=== PATIENT | female | born 1980 | race Caucasian/White ===

== ENCOUNTER 2017-12-12 11:29 | Emergency (ER) | payer MEDICARE, MEDICAID ==
[~2017-12-12] VITALS: Ht 172.7 cm; Wt 72.4 kg
[~2017-12-12 11:29] MED LIST: DEXL30CA3 PO; NORG1TAB42 PO
[2017-12-12 11:34] VITALS: BP 131/86
[2017-12-12] MEDS ORDERED: CEPH500C5 PO (11:47)
[2017-12-12] MEDS ORDERED: SULF1TAB49 PO (11:47)
== END 2017-12-12 12:00 | disposition home or self-care (01) ==
LOC: ER 11:30
DX: L02.511 Cutaneous abscess of right hand (principal); Z88.1 Allergy status to other antibiotic agents; Z79.899 Other long term (current) drug therapy
CPT/HCPCS: 99283

== ENCOUNTER 2019-08-31 12:58 | Emergency (ER) | payer MEDICAID, MEDICARE ==
[~2019-08-31] VITALS: Ht 172.7 cm; Wt 75.0 kg
[2019-08-31 13:20] LABS: BASOPHILS # (AUTO) 0.1 X10'3 (0-0.2); BASOPHILS % (AUTO) 0.9 % (0-1); EOSINOPHILS # (AUTO) 0.1 X10'3 (0-0.9); HEMATOCRIT 40.4 % (35.0-45.0); HEMOGLOBIN 13.7 g/dl (12.0-16.0); LYMPHOCYTES # (AUTO) 1.4 X10'3 (1.1-4.8); LYMPHOCYTES % (AUTO) 20.9 % (21-51); MEAN CORPUSCULAR HEMOGLOBIN 34.7 PG (27.0-31.0); MEAN CORPUSCULAR VOLUME 102.1 FL (78-98); MEAN PLATELET VOLUME 6.9 FL (7.4-10.4); MONOCYTES # (AUTO) 0.4 X10'3 (0-0.9); MONOCYTES % (AUTO) 6.5 % (2-12); NEUTROPHILS # (AUTO) 4.7 X10'3 (1.8-7.7); NEUTROPHILS % (AUTO) 70.7 % (42-75); PLATELET COUNT 300 X10'3 (140-440); RED BLOOD COUNT 3.95 X10'6 (4.20-5.60); RED CELL DISTRIBUTION WIDTH 12.7 % (11.5-14.5); WHITE BLOOD COUNT 6.7 X10'3 (4.5-11.0)
[2019-08-31 13:30] LABS: URINE HCG NEGATIVE (NEG)
[2019-08-31 13:31] LABS: CLARITY,URINE CLOUDY (Clear); COLOR,URINE YELLOW (Yellow); GLUCOSE, URINE NEGATIVE (Neg); KETONES,URINE TRACE mg/dl (Neg); LEUKOCYTE ESTERASE ,URINE TRACE (Neg); NITRITES, URINE NEGATIVE (Neg); OCCULT BLOOD,URINE TRACE-INTACT (Neg); PH,URINE 5.5 (4.8-8.0); PROTEIN,URINE TRACE mg/dl (Neg); UROBILINOGEN,URINE 0.2 E.U/dL (0.2-1.0)
[2019-08-31 13:33] LABS: ALANINE AMINOTRANSFERASE 21 U/L (12-78); ALBUMIN 3.7 G/DL (3.4-5.0); ALKALINE PHOSPHATASE 60 IU/L (46-116); ANION GAP 11 (8-16); ASPARTATE AMINO TRANSFERASE 19 U/L (10-37); BILIRUBIN,TOTAL 0.7 MG/DL (0.1-1.0); BLOOD UREA NITROGEN 11 MG/DL (7-18); BUN/CREATININE RATIO 13.4 (6.6-38.0); CALCIUM 8.2 MG/DL (8.5-10.1); CHLORIDE 104 MMOL/L (99-107); CREATININE 0.82 MG/DL (0.40-0.90); GLUCOSE 110 MG/DL (70-104); POTASSIUM 3.5 MMOL/L (3.5-5.1); SODIUM 143 MMOL/L (135-145); TOTAL CARBON DIOXIDE 28.1 MMOL/L (24-32); TOTAL PROTEIN 7.3 G/DL (6.4-8.2); eGFR 77 ML/MIN
[2019-08-31 13:35] LABS: UA COLLECTION TYPE CLN CATCH MIDSTREAM
[2019-08-31 13:51] LABS: BACTERIA,URINE FEW /HPF (Neg); RBC,URINE 0-2 /HPF (0-2); SQUAMOUS EPITHELIAL CELL,UR MODERATE /LPF (FEW)
[2019-08-31 13:53] LABS: HYALINE CASTS 0-3 /LPF (NEGATIVE); MUCUS STRANDS MODERATE /LPF (Neg)
[2019-08-31] MEDS ORDERED: OMEP40CA13 PO (15:04)
[2019-08-31 15:35] VITALS: BP 131/84
== END 2019-08-31 15:37 | disposition home or self-care (01) ==
LOC: ER 12:58
DX: R10.11 Right upper quadrant pain (principal); R10.13 Epigastric pain; Z88.1 Allergy status to other antibiotic agents; Z88.8 Allergy status to other drugs, medicaments and biological substances; Z79.899 Other long term (current) drug therapy
CPT/HCPCS: 36415; 76700; 80053; 81001; 81025; 85025; 85610; 87088; 99284

== ENCOUNTER 2023-03-20 19:13 | Inpatient (IN) | payer BC, MEDICAID ==
[~2023-03-20] VITALS: Ht 172.7 cm; Wt 70.0 kg
[2023-03-20] MEDS ORDERED: normal saline 1000ML IV soln IVB ONE ×2 (19:20→20:10)
[2023-03-20 19:36] LABS: BASOPHILS % (AUTO) 0.6 % (0-1); EOSINOPHILS % (AUTO) 0.3 % (0-6); HEMATOCRIT 38.6 % (35.0-45.0); HEMOGLOBIN 13.6 g/dl (12.0-16.0); LYMPHOCYTES # (AUTO) 1.7 X10'3 (1.1-4.8); LYMPHOCYTES % (AUTO) 28.1 % (21-51); MEAN CORPUSCULAR HEMOGLOBIN 36.1 PG (27.0-31.0); MEAN CORPUSCULAR HGB CONC 35.3 g/dL (33.0-36.5); MEAN CORPUSCULAR VOLUME 102.5 FL (78-98); MEAN PLATELET VOLUME 7.6 FL (7.4-10.4); MONOCYTES # (AUTO) 0.7 X10'3 (0-0.9); MONOCYTES % (AUTO) 11.3 % (2-12); NEUTROPHILS # (AUTO) 3.7 X10'3 (1.8-7.7); NEUTROPHILS % (AUTO) 59.7 % (42-75); PLATELET COUNT 304 X10'3 (140-440); RED BLOOD COUNT 3.77 X10'6 (4.20-5.60); RED CELL DISTRIBUTION WIDTH 12.6 % (11.5-14.5); WHITE BLOOD COUNT 6.2 X10'3 (4.5-11.0)
[2023-03-20 19:51] LABS: ALANINE AMINOTRANSFERASE 31 U/L (12-78); ALBUMIN 4.2 G/DL (3.4-5.0); ALBUMIN/GLOBULIN RATIO 1.1 (1.1-1.5); ALKALINE PHOSPHATASE 90 IU/L (46-116); ANION GAP 20 (8-16); ASPARTATE AMINO TRANSFERASE 33 U/L (10-37); BILIRUBIN,TOTAL 0.5 MG/DL (0.1-1.0); BLOOD UREA NITROGEN 50 MG/DL (7-18); BUN/CREATININE RATIO 21.5 (10.0-20.0); CALCIUM 9.4 MG/DL (8.5-10.1); CHLORIDE 95 MMOL/L (99-107); CREATININE 2.33 MG/DL (0.40-0.90); GLUCOSE 102 MG/DL (70-104); SODIUM 135 MMOL/L (135-145); TOTAL CARBON DIOXIDE 20.5 MMOL/L (24-32); TOTAL PROTEIN 7.9 G/DL (6.4-8.2); eGFR 23 ML/MIN
[2023-03-20 19:54] LABS: POTASSIUM 2.9 MMOL/L (3.5-5.1)
[2023-03-20] MEDS ORDERED: potassium Cl 20 mEq SR tablet PO STA (20:06)
[2023-03-20] MEDS ORDERED: potassium Cl 40MEQ/1/2NS 520ml 520 ML IV ONE (20:10)
[2023-03-20 20:28] LABS: MAGNESIUM 1.5 MG/DL (1.5-2.4); PHOSPHORUS 5.3 MG/DL (2.3-4.5)
[2023-03-20] MEDS ORDERED: magnesium 2GM in 50ml NS 50 ML IV ONE (20:40)
[2023-03-20] MEDS ORDERED: temazepam 15mg capsule PO PRN (21:00)
[2023-03-20] MEDS ORDERED: morphine 2 MG/ML inj. syringe IV PRN (22:05)
[2023-03-20] MEDS ORDERED: diphenhydrAMINE 25mg capsule PO PRN (22:05)
[2023-03-20] MEDS ORDERED: HYDROcodone/acetaminophen 5mg/325mg tablet PO PRN (22:05)
[2023-03-20] MEDS ORDERED: magnesium Cl slow-release 64mg tablet PO PRN (22:05)
[2023-03-20] MEDS ORDERED: ondansetron/PF 4mg/2ml inj IV PRN (22:05)
[2023-03-20] MEDS ORDERED: acetaminophen 325mg tablet PO PRN ×2 (22:05)
[2023-03-20] MEDS ORDERED: potassium Cl 40MEQ/1/2NS 520ml 520 ML IV PRN (22:05)
[2023-03-20] MEDS ORDERED: magnesium hydroxide 30ml (MOM) UD suspension PO PRN (22:05)
[2023-03-20] MEDS ORDERED: potassium Cl 20 mEq SR tablet PO PRN ×2 (22:05)
[2023-03-20] MEDS ORDERED: magnesium 4gm in 100ml NS 100 ML IV PRN (22:05)
[2023-03-20] MEDS ORDERED: magnesium 2GM in 50ml NS 50 ML IV PRN (22:05)
[2023-03-20] MEDS ORDERED: ondansetron 4mg rapidly disintigrating tab PO PRN (22:05)
[2023-03-20] MEDS ORDERED: bisacodyl 10mg suppository rectal RC PRN (22:05)
[2023-03-20] MEDS ORDERED: diphenhydrAMINE 50 mg/ml inj IV PRN (22:05)
[2023-03-20] MEDS ORDERED: mag hydrox/Alum hydrox/simeth 30ml oral suspension PO PRN (22:05)
[2023-03-20] MEDS ORDERED: nicotine 21mg patch - 24 hr TD ONE (22:15)
[2023-03-20 22:41] LABS: HEMOGLOBIN A1C 5.8 % (4.5-6.2)
[2023-03-20 22:42] LABS: APTT 27 SECONDS (22-32)
[2023-03-20 22:44] LABS: D-DIMER < 0.19 MG/L FEU (0-0.50)
[2023-03-21 00:15] LABS: CLARITY,URINE CLEAR (Clear); COLOR,URINE YELLOW (Yellow); GLUCOSE, URINE NEGATIVE (Neg); KETONES,URINE NEGATIVE (Neg); LEUKOCYTE ESTERASE ,URINE NEGATIVE (Neg); NITRITES, URINE NEGATIVE (Neg); OCCULT BLOOD,URINE NEGATIVE (Neg); PROTEIN,URINE NEGATIVE (Neg); UROBILINOGEN,URINE 0.2 E.U/dL (0.2-1.0)
[2023-03-21 00:16] LABS: UA COLLECTION TYPE CLN CATCH MIDSTREAM
[2023-03-21 00:27] LABS: URINE AMPHETAMINE SCREEN NEGATIVE (Neg); URINE BARBITUATE SCREEN NEGATIVE (Neg); URINE BENZODIAZEPINES SCREEN NEGATIVE (Neg); URINE CANNABINOID SCREEN POSITIVE (Neg); URINE COCAINE SCREEN NEGATIVE (Neg); URINE METHADONE SCREEN NEGATIVE (Neg); URINE OPIATE SCREEN NEGATIVE (Neg); URINE PHENCYCLIDINE SCREEN NEGATIVE (Neg)
[2023-03-21] MEDS ORDERED: LISI20TA28 PO (01:13)
[2023-03-21] MEDS ORDERED: BUDE10.22 INH (01:13)
[2023-03-21] MEDS ORDERED: METO25TA6 PO (01:13)
[2023-03-21] MEDS ORDERED: ALBU6.7H14 INH (01:13)
[2023-03-21] MEDS ORDERED: PANT20TA18 PO (01:13)
[2023-03-21] MEDS ORDERED: CHOL500050 PO (01:13)
[2023-03-21] MEDS ORDERED: EPIN0.3A3 IM (01:13)
[2023-03-21] MEDS ORDERED: HYDR25TA5 PO (01:13)
[2023-03-21] MEDS ORDERED: NICO-687 TD (01:13)
[2023-03-21] MEDS: potassium Cl 20mEq in NS 1,000 ML IV SCH ×3 (01:55→14:16)
[2023-03-21] MEDS ORDERED: albuterol 2.5 MG/3 ML nebule NEB PRN (04:05)
[2023-03-21] MEDS ORDERED: EPIPEN IM PRN (04:05)
[2023-03-21 05:06] LABS: BASOPHILS % (AUTO) 0.5 % (0-1); EOSINOPHILS % (AUTO) 0.6 % (0-6); HEMOGLOBIN 11.1 g/dl (12.0-16.0); LYMPHOCYTES # (AUTO) 1.8 X10'3 (1.1-4.8); LYMPHOCYTES % (AUTO) 20.3 % (21-51); MEAN CORPUSCULAR HEMOGLOBIN 36.1 PG (27.0-31.0); MEAN CORPUSCULAR HGB CONC 34.7 g/dL (33.0-36.5); MEAN PLATELET VOLUME 7.7 FL (7.4-10.4); MONOCYTES # (AUTO) 0.7 X10'3 (0-0.9); MONOCYTES % (AUTO) 8.1 % (2-12); NEUTROPHILS # (AUTO) 6.1 X10'3 (1.8-7.7); NEUTROPHILS % (AUTO) 70.5 % (42-75); PLATELET COUNT 237 X10'3 (140-440); RED BLOOD COUNT 3.07 X10'6 (4.20-5.60); RED CELL DISTRIBUTION WIDTH 12.6 % (11.5-14.5); WHITE BLOOD COUNT 8.6 X10'3 (4.5-11.0)
[2023-03-21 05:17] LABS: ALANINE AMINOTRANSFERASE 24 U/L (12-78); ALBUMIN 3.3 G/DL (3.4-5.0); ALBUMIN/GLOBULIN RATIO 1.2 (1.1-1.5); ALKALINE PHOSPHATASE 71 IU/L (46-116); ANION GAP 12 (8-16); ASPARTATE AMINO TRANSFERASE 37 U/L (10-37); BILIRUBIN,TOTAL 0.6 MG/DL (0.1-1.0); BLOOD UREA NITROGEN 48 MG/DL (7-18); BUN/CREATININE RATIO 33.6 (10.0-20.0); CALCIUM 8.2 MG/DL (8.5-10.1); CHLORIDE 105 MMOL/L (99-107); CHOL/HDL RATIO 2.4 (0.00-4.99); CHOLESTEROL 235 MG/DL (0-200); CREATINE KINASE 52 U/L (26-192); CREATININE 1.43 MG/DL (0.40-0.90); ETHANOL < 0.010 GM/DL (0.0-0.010); GLUCOSE 101 MG/DL (70-104); HDL CHOLESTEROL 96 MG/DL (35-60); LDL CHOLESTEROL 95 MG/DL (50-100); LIPASE 204 U/L (73-393); MAGNESIUM 1.9 MG/DL (1.5-2.4); POTASSIUM 4.1 MMOL/L (3.5-5.1); SODIUM 136 MMOL/L (135-145); TOTAL CARBON DIOXIDE 18.6 MMOL/L (24-32); TOTAL PROTEIN 6.1 G/DL (6.4-8.2); TRIGLYCERIDES 88 MG/DL (20-135); eGFR 40 ML/MIN
--- NOTE | 2023-03-21 06:40 | NUR ---
PT SLEEPING. NO OUTWARD S\S OF DISTRESS NOTED. PT ON BEDSIDE MONITORING EQUIPMENT. WILL CONTINUE TO MONITOR.
[2023-03-21] MEDS ORDERED: pantoprazole 40mg Tablet.DR PO SCH ×2 (07:30)
--- NOTE | 2023-03-21 07:57 | NUR ---
pt awake, up to [facility] for void - she denies needs at this time.
[2023-03-21] MEDS ORDERED: nicotine 21mg patch - 24 hr TD SCH (08:00)
[2023-03-21] MEDS: K and/or MAG REPLACEMENT MC SCH ×2 (08:00→20:19)
[2023-03-21] MEDS ORDERED: nicotine 21mg patch - 24 hr TD ONE (08:00)
[2023-03-21] MEDS: docusate sod 100mg capsule PO SCH ×2 (08:25→22:37)
[2023-03-21] MEDS: heparin, porcine 5000 units/ml vial SQ SCH ×2 (08:26→21:38)
[2023-03-21] MEDS: albuterol 2.5 MG/3 ML nebule NEB SCH ×3 (08:38→20:49)
[2023-03-21] MEDS: budesonide 0.5mg/2ml UD nebule IH SCH ×2 (08:38→20:49)
--- NOTE | 2023-03-21 08:40 | NUR ---
ORDER FOR NEW BREAKFAST TRAY SECONDARY TO ALLERGIES TO [place]. FAXED REQUEST TO DIETARY
--- NOTE | 2023-03-21 09:19 | NUR ---
ASSUMED CARE FROM RN. PT RESTINF IN BED, HOT PIPE GAUGER IN PLACE. INTRODUCED SELF AND ROLE. PT EDUCATED TO POC. PT IN AGREEMENT.
[2023-03-21 09:33] VITALS: BP 116/71
--- NOTE | 2023-03-21 10:05 | NUR ---
PT ATE 75% OF HER BREAKFAST. PT VOIDED X3.
--- NOTE | 2023-03-21 11:06 | NUR ---
PT TO MRI
--- NOTE | 2023-03-21 12:36 | NUR ---
PT HAS AN OPEN AREA TO HER R OUTTA LABIA THAT IS DRAINING SEROSANGNIOUS FL. HAS BEEN NOTIFIED
[2023-03-21] MEDS ORDERED: doxycycline inj 200 MG in normal saline 250ml IV soln 250 ML IV ONE (13:10)
--- NOTE | 2023-03-21 13:20 | NUR ---
this nurse chaperoned magu for exam
--- NOTE | 2023-03-21 22:29 | NUR ---
[id number] Rec'd Pt pending DC in NAD in POC. Pt requesting to speak to MD regarding results prior to DC, Dr. Paez called
== END 2023-03-21 23:06 | disposition home or self-care (01) | DRG 640 ==
LOC: ER 19:14 → ED HOLD 22:11 → EDBEDREQTM 22:33 → EDBEDREQSVC 23:18
PROVIDERS: ADMIT Family Medicine; ATTEND Internal Medicine
DX: E87.6 Hypokalemia (principal); N17.0 Acute kidney failure with tubular necrosis; L02.214 Cutaneous abscess of groin; N17.9 Acute kidney failure, unspecified; R55 Syncope and collapse; E87.1 Hypo-osmolality and hyponatremia; E87.20 Acidosis, unspecified; E78.5 Hyperlipidemia, unspecified; E86.0 Dehydration; T46.5X5A Adverse effect of other antihypertensive drugs, initial encounter; F12.10 Cannabis abuse, uncomplicated; I12.9 Hypertensive chronic kidney disease with stage 1 through stage 4 chronic kidney disease, or unspecified chronic kidney disease; M10.9 Gout, unspecified; N18.30 Chronic kidney disease, stage 3 unspecified; Z79.51 Long term (current) use of inhaled steroids; Z79.899 Other long term (current) drug therapy; Z82.49 Family history of ischemic heart disease and other diseases of the circulatory system; Z91.018 Allergy to other foods; Z88.8 Allergy status to other drugs, medicaments and biological substances; Z71.6 Tobacco abuse counseling; Z71.51 Drug abuse counseling and surveillance of drug abuser; Z72.0 Tobacco use; Y92.89 Other specified places as the place of occurrence of the external cause
CPT/HCPCS: 36415; 70551; 71045; 80053; 80061; 80305; 80320; 81003; 82550; 83036; 83690; 83735; 83880; 84100; 84145; 84443; 84484; 85025; 85379; 85610; 85651; 85730; 93005; 93306; 93880; 94640; 94760; 96365; 99285; G0378; J1644; J3475; J3480; J3490; J7030; J7050

== ENCOUNTER 2024-01-10 14:47 | Emergency (ER) | payer BC, MEDICAID ==
[~2024-01-10] VITALS: Ht 172.7 cm; Wt 70.5 kg
[~2024-01-10 14:47] MED LIST changes: +ALBU6.7H14 INH; +BUDE10.22 INH; +CHOL500050 PO; -DEXL30CA3 PO; +EPIN0.3A3 IM; +HYDR25TA5 PO; +LISI20TA28 PO; +METO25TA6 PO; +NICO-687 TD; -NORG1TAB42 PO; +PANT20TA18 PO
[2024-01-10 15:11] VITALS: TEMP 98.5
[2024-01-10 16:19] LABS: BILIRUBIN,URINE NEGATIVE (Neg); CLARITY,URINE CLOUDY (Clear); COLOR,URINE YELLOW (Yellow); GLUCOSE, URINE NEGATIVE (Neg); KETONES,URINE NEGATIVE (Neg); LEUKOCYTE ESTERASE ,URINE NEGATIVE (Neg); NITRITES, URINE NEGATIVE (Neg); OCCULT BLOOD,URINE TRACE-INTACT (Neg); PH,URINE 5.5 (4.8-8.0); PROTEIN,URINE NEGATIVE (Neg); UROBILINOGEN,URINE 0.2 E.U/dL (0.2-1.0)
[2024-01-10 16:24] LABS: UA COLLECTION TYPE CLN CATCH MIDSTREAM
[2024-01-10 16:25] LABS: BACTERIA,URINE 1+ /HPF (Neg); MUCUS STRANDS MODERATE /LPF (Neg); RBC,URINE 0-2 /HPF (0-2); SQUAMOUS EPITHELIAL CELL,UR MODERATE /LPF (FEW); WBC,URINE 0-4 /HPF (0-4)
[2024-01-10 17:47] LABS: URINE AMPHETAMINE SCREEN NEGATIVE (Neg); URINE BARBITUATE SCREEN NEGATIVE (Neg); URINE BENZODIAZEPINES SCREEN NEGATIVE (Neg); URINE CANNABINOID SCREEN POSITIVE (Neg); URINE COCAINE SCREEN NEGATIVE (Neg); URINE METHADONE SCREEN NEGATIVE (Neg); URINE OPIATE SCREEN NEGATIVE (Neg); URINE PHENCYCLIDINE SCREEN NEGATIVE (Neg)
[2024-01-10] MEDS: normal saline 1000ML IV soln IVB ONE (17:56)
[2024-01-10 17:58] VITALS: BP 147/109; PULSE 103; RESP 18; O2SAT 100
[2024-01-10 18:48] LABS: BASOPHILS # (AUTO) 0.1 X10'3 (0-0.2); BASOPHILS % (AUTO) 1.4 % (0-1); EOSINOPHILS # (AUTO) 0.1 X10'3 (0-0.9); EOSINOPHILS % (AUTO) 0.9 % (0-6); HEMATOCRIT 37.4 % (35.0-45.0); HEMOGLOBIN 12.7 g/dl (12.0-16.0); LYMPHOCYTES # (AUTO) 1.8 X10'3 (1.1-4.8); LYMPHOCYTES % (AUTO) 27.5 % (21-51); MEAN CORPUSCULAR HEMOGLOBIN 35.4 PG (27.0-31.0); MEAN CORPUSCULAR HGB CONC 33.8 g/dL (33.0-36.5); MEAN CORPUSCULAR VOLUME 104.6 FL (78-98); MEAN PLATELET VOLUME 7.1 FL (7.4-10.4); MONOCYTES # (AUTO) 0.5 X10'3 (0-0.9); NEUTROPHILS # (AUTO) 4.2 X10'3 (1.8-7.7); NEUTROPHILS % (AUTO) 63.2 % (42-75); PLATELET COUNT 375 X10'3 (140-440); RED BLOOD COUNT 3.58 X10'6 (4.20-5.60); RED CELL DISTRIBUTION WIDTH 14.5 % (11.5-14.5); WHITE BLOOD COUNT 6.7 X10'3 (4.5-11.0)
[2024-01-10 19:12] LABS: ALBUMIN 3.4 G/DL (3.4-5.0); ANION GAP 11 (8-16); BLOOD UREA NITROGEN 8 MG/DL (7-18); BUN/CREATININE RATIO 10.7 (10.0-20.0); CALCIUM 8.1 MG/DL (8.5-10.1); CHLORIDE 108 MMOL/L (99-107); CREATINE KINASE 74 U/L (26-192); CREATININE 0.75 MG/DL (0.40-0.90); GLUCOSE 100 MG/DL (70-104); POTASSIUM 3.2 MMOL/L (3.5-5.1); PRO BRAIN NATRIURETIC PEPTIDE 51 PG/ML (0-125); SODIUM 147 MMOL/L (135-145); TOTAL CARBON DIOXIDE 28.3 MMOL/L (24-32); eCRCL 96 ML/MIN; eGFR 84 ML/MIN
[2024-01-10] MEDS: thiamine 100mg/ml 2ml inj. IM ONE (19:33)
== END 2024-01-10 19:47 | disposition home or self-care (01) ==
LOC: ER 14:47
DX: I10 Essential (primary) hypertension (principal); R53.1 Weakness; M79.604 Pain in right leg; M79.605 Pain in left leg; Z88.8 Allergy status to other drugs, medicaments and biological substances; Z88.1 Allergy status to other antibiotic agents; Z91.018 Allergy to other foods; Z79.899 Other long term (current) drug therapy
CPT/HCPCS: 36415; 80048; 80305; 81001; 82550; 83880; 84484; 85025; 93005; 96360; 96372; 99284; J3411; J7030

== ENCOUNTER 2024-05-29 16:46 | Emergency (ER) | payer BC, MEDICAID ==
[~2024-05-29] VITALS: Ht 172.7 cm; Wt 71.4 kg
[2024-05-29 17:04] LABS: BASOPHILS # (AUTO) 0.1 X10'3 (0-0.2); BASOPHILS % (AUTO) 1.7 % (0-1); EOSINOPHILS # (AUTO) 0.1 X10'3 (0-0.9); EOSINOPHILS % (AUTO) 0.8 % (0-6); HEMATOCRIT 41.6 % (35.0-45.0); HEMOGLOBIN 14.3 g/dl (12.0-16.0); LYMPHOCYTES # (AUTO) 1.1 X10'3 (1.1-4.8); LYMPHOCYTES % (AUTO) 15.5 % (21-51); MEAN CORPUSCULAR HEMOGLOBIN 36.9 PG (27.0-31.0); MEAN CORPUSCULAR HGB CONC 34.4 g/dL (33.0-36.5); MEAN CORPUSCULAR VOLUME 107.3 FL (78-98); MEAN PLATELET VOLUME 7.7 FL (7.4-10.4); MONOCYTES # (AUTO) 0.4 X10'3 (0-0.9); MONOCYTES % (AUTO) 5.6 % (2-12); NEUTROPHILS # (AUTO) 5.5 X10'3 (1.8-7.7); NEUTROPHILS % (AUTO) 76.4 % (42-75); PLATELET COUNT 332 X10'3 (140-440); RED BLOOD COUNT 3.88 X10'6 (4.20-5.60); RED CELL DISTRIBUTION WIDTH 14.5 % (11.5-14.5); WHITE BLOOD COUNT 7.2 X10'3 (4.5-11.0)
[2024-05-29 17:22] LABS: ALBUMIN 3.5 G/DL (3.4-5.0); ANION GAP 10 (8-16); BLOOD UREA NITROGEN 8 MG/DL (7-18); BUN/CREATININE RATIO 12.9 (10.0-20.0); CALCIUM 8.7 MG/DL (8.5-10.1); CHLORIDE 101 MMOL/L (99-107); CREATININE 0.62 MG/DL (0.40-0.90); GLUCOSE 109 MG/DL (70-104); POTASSIUM 3.1 MMOL/L (3.5-5.1); PRO BRAIN NATRIURETIC PEPTIDE 258 PG/ML (0-125); SODIUM 140 MMOL/L (135-145); eCRCL 114 ML/MIN; eGFR > 90 ML/MIN
[2024-05-29] MEDS ORDERED: potassium bicarbonate/cit acid 25mEq tablet.effervescent PO ONE (17:35)
[2024-05-29] MEDS: POTASSIUM BICARBONATE/CIT AC 10 MEQ TABLET.EFF PO ONE (18:25)
[2024-05-29] MEDS: HYDROcodone/acetaminophen 10/325mg tab PO ONE (18:29)
[2024-05-29] MEDS ORDERED: BUDE10.2 INH (19:40)
[2024-05-29] MEDS ORDERED: DOXY-1 PO (19:40)
[2024-05-29] MEDS ORDERED: HYDR-3973 PO (19:40)
[2024-05-29] MEDS: ondansetron/PF 4mg/2ml inj IV ONE (19:52)
[2024-05-29] MEDS: morphine 4 MG/ML inj SYRINge IV ONE (19:52)
[2024-05-29] MEDS: ketorolac trometh. 30mg/ml inj. IV ONE (19:59)
[2024-05-29 20:02] VITALS: BP 124/92; PULSE 73; RESP 15; O2SAT 93
[2024-05-29 20:20] VITALS: TEMP 98.4
[2024-05-30] MEDS ORDERED: POTASSIUM BICARBONATE/CIT AC 10 MEQ TABLET.EFF PO SCH
== END 2024-05-29 20:21 | disposition home or self-care (01) ==
LOC: ER 16:46
DX: R09.1 Pleurisy (principal); R07.89 Other chest pain; I10 Essential (primary) hypertension; F17.200 Nicotine dependence, unspecified, uncomplicated; Z88.1 Allergy status to other antibiotic agents; Z88.8 Allergy status to other drugs, medicaments and biological substances; Z79.51 Long term (current) use of inhaled steroids; Z79.899 Other long term (current) drug therapy
CPT/HCPCS: 36415; 71045; 80048; 83880; 84484; 85025; 93005; 96374; 96375; 99285; J1885; J2270; J2405

== ENCOUNTER 2025-08-15 14:32 | Emergency (ER) | payer BC, MEDICAID ==
[~2025-08-15] VITALS: Ht 172.7 cm; Wt 76.0 kg
[~2025-08-15 14:32] MED LIST changes: +BUDE10.2 INH
--- NOTE | 2025-08-15 14:56 | Physician Documentation ---
History of Present Illness Chief Complaint: Abdominal Pain w/vomiting Stated Complaint: MULTIPLE MED COMPLAINTS Primary Medical Doctor: [facility] HPI 45-year-old female that presents to the emergency department for midsternal chest pain radiating down into her abdomen around to the right side into her back times at least 1 month. Reports that she is followed by a neurologist for intermittent episodes of numbness and tingling that she has experienced for a couple of years. Patient reports that she underwent head abdominal ultrasound on July 31 but has yet to receive the results of that ultrasound and she continues to have abdominal discomfort nausea vomiting and inability to keep food down. Patient reports over the last couple of days she has developing increased cramping in her hands and legs. Patient reports thyroid disorder says he takes levothyroxine for. Patient denies heavy alcohol use currently but does report that she has a history of heavy alcohol use patient denies any illicit drug use at this time reports only cigarettes and marijuana use currently. Denies any hematemesis issues with bladder or bowel or any other symptoms at this time. History as above. Patient has been having chronic nausea that has well. History of heartburn but takes nothing for her stomach. Bowel movements are regular as that has urination. No fevers. Medication Reconciliation Allergies: Coded Allergies: Cilastatin Sodium (Verified Allergy, Unknown, 08/15/25) Clindamycin Palmitate HCl (Verified Allergy, Unknown, 08/31/19) clindamycin HCl (Verified Allergy, Unknown, 08/31/19) clindamycin phosphate (Verified Allergy, Unknown, 08/15/25) grapefruit (Unverified Allergy, Unknown, anaphalaxis, 08/15/25) imipenem (Verified Allergy, Unknown, 08/31/19) Uncoded Allergies: ORANGES (Allergy, Unknown, anaphalaxis, 03/21/23) Scheduled Budesonide/Formoterol Fumarate (Symbicort 80-4.5 Mcg Inhaler), 2 PUFFS INH BID, (Reported) Budesonide/Formoterol Fumarate (Symbicort 160-4.5 Mcg Inhaler), 2 PUFFS INH Q12H Cholecalciferol (Vitamin D3) (Vitamin D3), 5,000 INTLU PO DAILY, (Reported) Hydrochlorothiazide (Hydrochlorothiazide), 1 TAB PO DAILY, (Reported) Lisinopril (Lisinopril), 30 MG PO HS, (Reported) Metoprolol Tartrate (Metoprolol Tartrate), 1 TAB PO BID, (Reported) Nicotine 21 MG Patch* (Habitrol 21 MG Patch*), 1 PATCH TD DAILY, (Reported) Pantoprazole Sodium (Protonix), 1 TAB PO DAILY, (Reported) Scheduled PRN Albuterol Sulfate (Proventil Hfa), 2 PUFFS INH Q4H PRN for SOB or wheezing, (Reported) Epinephrine (Epinephrine), 0.3 ML IM PRN PRN for ANAPHYLAXIS, (Reported) Past Medical History Past Medical History: Hypertension, *HEMATOLOGY*, Gout Past Surgical History: noncontributory Alcohol Use: None Lives with: Family Lives In: Home Review of Systems ROS All review of systems negative except as per HPI Physical Exam Vital Signs: Temperature: 97.4, Source: Temporal, Heart Rate: 90, Respiratory Rate: 16, BP: 162/104, Pulse Oximetry: 96, Weight: 76.000 Oxygen Flow Rate: 0 Physical Exam General: Patient is awake, alert, oriented x4 in no acute distress and well appearing.~ Head: Normocephalic and atraumatic. Eyes: Conjunctival normal. EOMI. PERRL. ENT: Mucous membranes moist. Neck: Supple, trachea is midline. Chest: Clear to auscultation bilaterally without rales, rhonchi, or wheezes. There is no accessory muscle use or retractions. Cardiac: RRR without murmurs, gallops, or rubs. Abd: Soft, nondistended, nontender, with normoactive bowel sounds. No guarding, rebound, or rigidity. Progress Results/Orders Results/Orders Orders - [facility] Urinalysis, Cult If Indicated (08/15/25 14:47) Hcg, Ur Ql (08/15/25 14:47) Cbc/Diff (08/15/25 14:47) BMP (08/15/25 14:47) Lipase (08/15/25 14:47) CMP (08/15/25 14:47) Vital Signs 08/15/25 14:38 Temp 97.4 Pulse 90 Resp 16 B/P (MAP) 162/104 Pulse Ox 96 O2 Flow Rate 0 Medical Decision Making Findings Patient presents to the emergency room with abdominal pain x1 month as per HPI. Differentials include but are not limited to gastritis cholecystitis pancreatitis diverticulitis small-bowel obstruction kidney stone pyelonephritis therefore emergent labs and imaging indicated. Imaging reassuring. Patient does have elevated liver enzymes consistent with her admitted alcohol consumption. Noted elevation of mean cell volume. Given patient's location of her pain I suspect she may be suffering from pain from an enlarged liver and possibly alcoholic gastritis. Ultimately I do not feel patient is suffering from emergency. She has already established a doctor to investigate this. ER precautions discussed. I do not suspect obstructive liver process Departure Disposition: HOME / SELF CARE / HOMELESS Impression: Primary Impression: Hypokalemia Additional Impressions: Acute gastritis Transaminitis Condition: Stable Discharge Instructions: Gastritis, Adult Additional Instructions: Your labs suggest that you have significant alcohol ingestion and this may be causing swollen liver leading to right-sided abdominal pain that has well as irritation to your stomach lining causing nausea and vomiting. Considered decreasing alcohol consumption Referrals: NO PRIMARY CARE PROVIDER (PCP) Prescriptions Potassium Chloride* (K-Dur*) 20 Meq Tab.prt.sr 1 TAB PO Q12H, #6 TAB Prov: ANEESH ALMANZA MD 08/15/25 Pantoprazole Sodium (Protonix) 20 Mg Tablet.dr 1 TAB PO DAILY for 30 Days, #30 TAB 0 Refills Prov: ANEESH ALMANZA MD 08/15/25 Ondansetron 8mg ODT (Ondansetron Odt) 8 Mg Tab.rapdis 1 TAB PO Q6H for nausea/vomiting for 3 Days, #12 TAB 0 Refills Prov: ANEESH ALMANZA MD 08/15/25 Education Educated: Patient Educated regarding: diagnosis, treatment, need for follow up Signature Scribe Signature: No scribe Attestation: The note accurately reflects work and decisions made by me.Aneesh Almanza MD 08/15/25 20:55 [facility] Aug 15, 2025 14:56 ANEESH ALMANZA MD Aug 15, 2025 19:14
[2025-08-15 15:39] LABS: MEAN PLATELET VOLUME 7.5 FL (7.4-10.4); RED CELL DISTRIBUTION WIDTH 13.7 % (11.5-14.5)
[2025-08-15 15:55] LABS: CREATININE 0.72 MG/DL (0.40-0.90); TOTAL CARBON DIOXIDE 31.4 MMOL/L (24-32); eCRCL 97 ML/MIN; eGFR 87 ML/MIN
[2025-08-15] MEDS: ondansetron 4mg rapidly disintigrating tab PO ONE (19:38)
[2025-08-15] MEDS: LIDOcaine 2% Viscous 15ml cup MM ONE (19:38)
[2025-08-15] MEDS: mag hydrox/Alum hydrox/simeth 30ml oral suspension PO ONE (19:38)
[2025-08-15] MEDS: pantoprazole 40mg Tablet.DR PO ONE (19:39)
[2025-08-15 19:44] LABS: LEUKOCYTE ESTERASE ,URINE NEGATIVE (Neg); NITRITES, URINE NEGATIVE (Neg); OCCULT BLOOD,URINE NEGATIVE (Neg); URINE HCG NEGATIVE (NEG)
[2025-08-15 19:51] LABS: UA COLLECTION TYPE NON-SPECIFIED
[2025-08-15 19:54] LABS: AMORPHOUS URATES 1+; SQUAMOUS EPITHELIAL CELL,UR MANY /LPF (FEW)
[2025-08-15] MEDS ORDERED: POTASSIUM BICARB 20meq eff tab 20 MEQ TABLET.EFF PO ONE (20:10)
--- NOTE | 2025-08-15 20:32 | RADIOLOGY REPORT ---
CLINICAL HISTORY: right sided abd pain TECHNIQUE: CT of the abdomen and pelvis was performed without IV contrast. This exam was performed according to our departmental dose optimization program. Up-to-date CT equipment and radiation dose reduction techniques are utilized as appropriate. CTDI 18.6 DLP 933.9 COMPARISON: ULTRASOUND OF ABDOMEN on DOS: 08/31/19 FINDINGS: Abdomen/Pelvis: The spleen, pancreas, adrenal glands, kidneys, gallbladder, and liver are grossly unremarkable. The bladder is not well distended therefore not well evaluated. The uterus is absent. The abdominal aorta is normal in course and caliber. There are mild atherosclerotic calcifications. There is no free intraperitoneal air or fluid. There is no enlarged abdominal pelvic lymph node. There is no bowel wall thickening or dilatation. There is extensive submucosal fat within the proximal ascending colonand scattered submucosal fat throughout the remainder of the colon, compatible with an old infectious/inflammatory process. Other: The imaged lower thorax is unremarkable. No acute osseous abnormality is evident. Impression: No acute abnormality.
[2025-08-15] MEDS: potassium Cl 20 mEq SR tablet PO STA (20:44)
[2025-08-15] MEDS ORDERED: POTA-207 PO (20:54)
[2025-08-15] MEDS ORDERED: ONDA-245 PO (20:54)
[2025-08-15] MEDS ORDERED: PANT20TA18 PO (20:54)
[2025-08-15 21:12] VITALS: BP 146/85; PULSE 79; RESP 16; TEMP 97.4; O2SAT 96
== END 2025-08-15 21:17 | disposition home or self-care (01) ==
LOC: ER 14:33
DX: K29.00 Acute gastritis without bleeding (principal); E87.6 Hypokalemia; R74.01 Elevation of levels of liver transaminase levels; I10 Essential (primary) hypertension; M10.9 Gout, unspecified; Z88.8 Allergy status to other drugs, medicaments and biological substances; Z91.018 Allergy to other foods; Z88.1 Allergy status to other antibiotic agents; Z79.899 Other long term (current) drug therapy; Z79.52 Long term (current) use of systemic steroids
CPT/HCPCS: 36415; 74176; 80053; 81001; 81025; 83690; 85025; 99284